=== PATIENT | female | born 1965 | race Caucasian/White ===

== ENCOUNTER → 2017-11-21 | Outpatient (CLI) | payer BC ==
--- NOTE | 2017-11-23 10:47 | MM ---
Reason for exam: screening (asymptomatic). Last mammogram was performed 1 year and 10 months ago. History: Patient is postmenopausal and had first child at age 33. Family history of breast cancer in paternal cousin. Benign excisional biopsy of the right breast, 2003. Physical Findings: A clinical breast exam by your physician is recommended on an annual basis and results should be correlated with mammographic findings. MG 3D Screening Mammo W/Cad Bilateral CC and MLO view(s) were taken. Prior study comparison: January 12, 2016, bilateral MG screening mammo w CAD. November 22, 2012, bilateral digital screening mammo w/CAD. There are scattered fibroglandular densities. A 9 x 5mm circumscribed mass posterior upper outer quadrant left breast is larger. ASSESSMENT: Incomplete: need additional imaging evaluation, BI-RAD 0 RECOMMENDATION: Special view mammogram and ultrasound of the left breast. [facility] will attempt to contact patient to return for supplemental views and ultrasound.
== END | disposition home or self-care (01) ==
LOC: RADMAMWWP 16:47
PROVIDERS: ATTEND Family Medicine
DX: Z12.31 Encounter for screening mammogram for malignant neoplasm of breast (principal)
CPT/HCPCS: 77063; 77067

== ENCOUNTER → 2017-12-01 | Outpatient (CLI) | payer BC ==
--- NOTE | 2017-12-01 08:35 | MM ---
Reason for exam: additional evaluation requested from abnormal screening. Last mammogram was performed less than 1 month ago. History: Patient is postmenopausal and had first child at age 33. Family history of breast cancer in paternal cousin. Benign excisional biopsy of the right breast, 2003. Physical Findings: Nurse did not find any significant physical abnormalities on exam. MG 3D Work Up W/Cad LT LM view(s) were taken of the left breast. Prior study comparison: November 21, 2017, bilateral MG 3d screening mammo w/cad. January 12, 2016, bilateral MG screening mammo w CAD. There are scattered fibroglandular densities. The 2 o'clock 9mm mass persists. Two additional circumscribed nodules are now seen, suspect cysts. These results were verbally communicated with the patient and result sheet given to the patient on 12/01/17. ASSESSMENT: Incomplete: need additional imaging evaluation, BI-RAD 0 RECOMMENDATION: Ultrasound of the left breast. (upper outer quadrant)
--- NOTE | 2017-12-01 08:54 | USB ---
Reason for exam: additional evaluation requested from abnormal screening. History: Patient is postmenopausal and had first child at age 33. Family history of breast cancer in paternal cousin. Benign excisional biopsy of the right breast, 2003. US Breast Workup Limited LT Left limited breast ultrasound including focal area of concern, retroareolar and axilla demonstrates a 0.7 x 0.3 x 0.8cm oval, cystic lesion at 2 o'clock, corresponds well to the original mammographic finding. 6 month follow up mammogram for the finding on the lateral view. These results were verbally communicated with the patient and result sheet given to the patient on 12/01/17. ASSESSMENT: Probably benign, BI-RAD 3 RECOMMENDATION: Follow-up diagnostic mammogram of the left breast in 6 months. Including a lateral view.
== END | disposition home or self-care (01) ==
LOC: RADMAMWWP 07:15
PROVIDERS: ATTEND Family Medicine
DX: R92.8 Other abnormal and inconclusive findings on diagnostic imaging of breast (principal)
CPT/HCPCS: 77061; 77065

== ENCOUNTER → 2018-02-28 | Outpatient (CLI) | payer BC ==
[2018-02-28 10:15] VITALS: BP 114/62; PULSE 84; TEMP 97.7; BMI 26.1
--- NOTE | 2018-02-28 11:36 | P.HPOB ---
History of Present Illness H&P Date: 02/28/18 Chief Complaint: The patient is here for her routine gynecologic exam. This is a 53-year-old G2 PII within LMP of 2007. The patient states that she is noticed a " skin tag "on the left labia. She noticed it about 2 weeks ago. She states it is very small and not painful. She states is the size of a small pimple. She is otherwise without complaints and denies any postmenopausal bleeding. Review of Systems The patient has gained 13 pounds over the last 2 years. She denies respiratory , cardiac, or G.I. problems. She has been treated for palpitations with propranolol and states the palpitations have improved. Past Medical History Past Medical History: Thyroid Disorder (Graves disease.) Additional Past Medical History / Comment(s): seasonal allergies. Palpitations improved with beta gavino. 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 History of Any Multi-Drug Resistant Organisms: None Reported Past Surgical History: Breast Surgery (Right breast biopsy), Section, Tonsillectomy Additional Past Surgical History / Comment(s): Myomectomy done vaginally. Past Psychological History: No Psychological Hx Reported Smoking Status: Never smoker Past Alcohol Use History: None Reported Past Drug Use History: None Reported Additional History: She has been since 1986. She currently does not work outside the home. - Past Family History Father Family Medical History: No Reported History Additional Family Medical History / Comment(s): Grandfather had Parkinson's disease Mother Family Medical History: No Reported History Additional Family Medical History / Comment(s): Grandmother had rheumatoid arthritis. Medications and Allergies Home Medications Medication Instructions Recorded Confirmed Type Methimazole [Tapazole] 2.5 PO DAILY 02/28/18 History Propranolol HCl PO DAILY 02/28/18 History Allergies Allergy/AdvReac Type Severity Reaction Status Date / Time No Known Allergies Allergy Unverified 02/28/18 10:10 Exam Vital Signs Temp Pulse BP 02/28/18 10:11 97.7 F 84 114/62 Intake and Output 02/27/18 02/28/18 02/28/18 22:59 06:59 14:59 Other: Weight 68.946 kg Height 5'4", BMI 26.1. This is a well-developed well-nourished white female who is alert and oriented times 3 in no acute distress. HEENT: Within normal limits. NECK: Supple. There is mild thyroid enlargement. The thyroid is approximate 1.5 times normal size and a soft and nontender. There are no palpable focal nodules.. CHEST AND LUNGS: Clear to auscultation. HEART: Regular rate and rhythm. BREASTS: Are without mass or discharge. AXILLARY EXAM: Negative for adenopathy. BACK: Negative for CVA tenderness. ABDOMEN: Soft, nontender, without palpable masses. PELVIC EXAM: external genitalia reveals mild atrophy. There is a 4 mm left labia majora inclusion cyst which is smooth and benign appearing. The inclusion cyst is nontender. Cervix and vagina appear normal with mild atrophy. There is no unusual discharge. There is no evidence of prolapse. The uterus is midposition, nongravid size and nontender. There are no palpable adnexal masses or tenderness. RECTAL EXAM: there is an external hemorrhoid measuring approximately 1.5 cm which is unchanged from her previous exam. This is not inflamed and nontender. Rectovaginal exam is negative for mass or tenderness and is negative for occult blood. EXTREMITIES: Nontender. IMPRESSION: 1. 53-year-old menopausal female with small 4mm benign appearing left labia inclusion cyst and otherwise unremarkable gynecologic exam. PLAN: 1. Pap smear was performed. 2. Self breast awareness was discussed with the patient. 3. Screening mammogram was done on 11/21/2017. A left breast workup was done on 12/01/2017 and was felt to be benign. A six-month diagnostic left mammogram was recommended. The order slip for this was given to the patient. 4. Osteoporosis prevention was discussed. 5. She will return in one year.
== END ==
LOC: WWCWWP 09:56
PROVIDERS: ATTEND Obstetrics & Gynecology
DX: Z53.9 Procedure and treatment not carried out, unspecified reason (principal)

== ENCOUNTER → 2018-07-03 | Outpatient (CLI) | payer BC ==
--- NOTE | 2018-07-03 15:11 | US ---
EXAMINATION TYPE: US thyroid st tissue head/neck DATE OF EXAM: 07/03/2018 COMPARISON: US thyroid May 31, 2016 CLINICAL HISTORY: Graves Disease E05.00; thyroid nodules GLAND SIZE: Right Lobe: 5.1 x 2.2 x 1.7 cm Overall Parenchyma: heterogenous Left Lobe: 4.6 x 2.3 x 1.2 cm Overall Parenchyma: heterogeneous Isthmus Thickness: 0.2 cm NODULES RIGHT: # of nodules measured on right: 2 1. 0.9 X 0.8 x 0.4 cm hypoechoic mixed nodule at the upper pole with well-defined margins. This no dule is wider than tall and shows intranodular vascularity. Prior size: 0.6 x 0.6 x 0.4 cm 2. 1.5 X 1.2 x 0.7 cm hypoechoic solid consolidation of nodules at the lower pole with well-defined margins. This nodule is wider than tall and shows intranodular vascularity. Prior size: 1.3 x 1.0 x 0.8 cm LEFT: # of nodules measured on left: 1 1. 0.6 X 0.5 x 0.3 cm hypoechoic solid nodule at the lower pole with poorly defined margins. This nodule is wider than tall and shows no intranodular vascularity. Prior size: 0.4 x 0.4 x 0.2 cm ISTHMUS: # of nodules measured in the isthmus: 0 Bilateral neck scanned: no evidence of lymphadenopathy. Heterogeneous normal-sized thyroid with scattered small nodules redemonstrated. No significant interv al change. IMPRESSION: As above, no significant change from prior study.
== END | disposition home or self-care (01) ==
LOC: RADUSWWP 14:21
PROVIDERS: ATTEND Internal Medicine
DX: E04.2 Nontoxic multinodular goiter (principal); E05.00 Thyrotoxicosis with diffuse goiter without thyrotoxic crisis or storm
CPT/HCPCS: 76536

== ENCOUNTER → 2019-07-01 | Outpatient (CLI) | payer BC ==
--- NOTE | 2019-07-02 08:36 | US ---
EXAMINATION TYPE: US thyroid st tissue head/neck DATE OF EXAM: 07/01/2019 COMPARISON: 07/03/2018 and 05/31/2016 CLINICAL HISTORY: E05.00 Graves Disease. GLAND SIZE: Right Lobe: 4.8 x 1.4 x 1.9 cm Overall Parenchyma: homogenous Left Lobe: 4.7 x 1.1 x 2.0 cm Overall Parenchyma: homogeneous Isthmus Thickness: 0.2 cm NODULES RIGHT: # of nodules measured on right: 2 1. 0.9 X 0.6 x 0.7 cm isoechoic solid nodule at the upper pole with poorly defined margins; . This nodule is wider than tall and shows intranodular vascularity. Prior size: 0.9 x 0.4 x 0.8 cm 2. 1.2 X 0.7 x 0.9 cm hypoechoic solid nodule at the lower pole with poorly defined margins; . This nodule is wider than tall and shows intranodular vascularity. Prior size: 1.5 x 0.7 x 1.2 cm LEFT: # of nodules measured on left: 1 1. 0.6 X 0.5 x 0.5 cm isoechoic solid nodule at the lower pole with poorly defined margins; . This nodule is wider than tall and shows intranodular vascularity. Prior size: 0.6 x 0.3 x 0.5 cm ISTHMUS: # of nodules measured in the isthmus: 0 Bilateral neck scanned, no evidence of lymphadenopathy. Technologists notes that nodules are vague and difficult to distinguish from surrounding tissue. IMPRESSION: Bilateral thyroid nodules are similar in size to the prior exam with no interval growth.
== END | disposition home or self-care (01) ==
LOC: RADUSWWP 16:51
PROVIDERS: ATTEND Internal Medicine
DX: E05.20 Thyrotoxicosis with toxic multinodular goiter without thyrotoxic crisis or storm (principal)
CPT/HCPCS: 76536

== ENCOUNTER → 2020-07-13 | Outpatient (CLI) | payer BC ==
--- NOTE | 2020-07-13 12:20 | US ---
EXAMINATION TYPE: US thyroid st tissue head/neck DATE OF EXAM: 07/13/2020 COMPARISON: NONE CLINICAL HISTORY: 55-year-old female E05.00 Graves Disease. Graves disease, follow up thyroid nodules TECHNIQUE: Multiple sonographic images of the thyroid gland are obtained. FINDINGS: GLAND SIZE: Right Lobe: 5.0 x 1.6 x 2.0 cm Overall Parenchyma: homogenous Left Lobe: 4.4 x 1.4 x 1.9 cm Overall Parenchyma: homogeneous Isthmus Thickness: 0.4 cm NODULES RIGHT: # of nodules measured on right: 2 1. 0.9 X 0.6 x 0.8 cm solid, isoechoic nodule, which is wider than tall, with poorly defined margin s, without echogenic foci. Prior size: 0.9 x 0.6 x 0.7 cm 2. 1.4 X 0.7 x 1.2 cm solid, isoechoic nodule, which is wider than tall, with poorly defined margin s, without echogenic foci. Prior size: 1.2 x 0.7 x 0.9 cm LEFT: # of nodules measured on left: 0 ISTHMUS: # of nodules measured in the isthmus: 0 Bilateral neck scanned, no evidence of lymphadenopathy. IMPRESSION: 1. Borderline enlarged thyroid gland. 2. Solid TR3 nodule left lower pole slightly larger 1.4 x 1.2 cm (versus 1.2 x 0.9 cm, previously). G iven slight increase in size, continued follow-up can be performed. 3. The solid 9 mm nodule on the right is unchanged.
== END | disposition home or self-care (01) ==
LOC: RADUSWWP 09:53
PROVIDERS: ATTEND Internal Medicine
DX: E04.2 Nontoxic multinodular goiter (principal)
CPT/HCPCS: 76536

== ENCOUNTER → 2021-07-27 | Outpatient (CLI) | payer BC ==
[2021-07-27 10:47] VITALS: BP 122/74; PULSE 84; RESP 17; TEMP 97.8
--- NOTE | 2021-07-27 11:47 | P.HPOB ---
History of Present Illness H&P Date: 07/27/21 Chief Complaint: The patient is here for her routine gynecologic exam and ma mmogram. This is a 56-year-old with an LMP of 2007. The patient states she recently had 2 episodes of post coital vaginal spotting. She states that on these 2 occasions, she noticed some brownish blood which immediately stopped. She is wondering if it could have been from her . She denies any discomfort with intercourse and did not notice anything unusual during those episodes of sexual intercourse. Her did not seem to have any discomfort or pain with ejaculation. Review of Systems She has lost about 4 pounds over the past 3 years. She denies respiratory, cardiac, or GI problems. Past Medical History Past Medical History: Thyroid Disorder Additional Past Medical History / Comment(s): seasonal allergies. Palpitations improved with beta gavino. 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 History of Any Multi-Drug Resistant Organisms: None Reported Past Surgical History: Breast Surgery, Section, Tonsillectomy Additional Past Surgical History / Comment(s): Myomectomy done vaginally. Past Psychological History: No Psychological Hx Reported Smoking Status: Never smoker Past Alcohol Use History: None Reported Past Drug Use History: None Reported Additional History: She has been since 1986. She delivers groceries. - Past Family History Father Family Medical History: No Reported History Additional Family Medical History / Comment(s): Grandfather had Parkinson's d isease Mother Family Medical History: No Reported History Additional Family Medical History / Comment(s): Grandmother had rheumatoid arthritis. Medications and Allergies Home Medications Medication Instructions Recorded Confirmed Type methIMAzole [Tapazole] 2.5 mg PO DAILY 02/28/18 07/27/21 History Glucosamine/Chondro Golden A [Cosamin 50 mg PO BID 07/27/21 07/27/21 History Ds Tablet] Allergies Allergy/AdvReac Type Severity Reaction Status Date / Time No Known Allergies Allergy Unverified 07/27/21 10:42 Exam Vital Signs Temp Pulse Resp BP Pulse Ox 07/27/21 10:44 97.8 F 84 17 122/74 97 Intake and Output 07/26/21 07/27/21 07/27/21 22:59 06:59 14:59 Other: Weight 67.132 kg Height 5 feet 4 inches, weight 148 pounds, BMI 25.4. This is a well-developed well-nourished white female who is alert and oriented times 3 in no acute distress. HEENT: Within normal limits. NECK: Supple without mass or thyromegaly. CHEST AND LUNGS: Clear to auscultation. HEART: Regular rate and rhythm. BREASTS: Are without mass or discharge. AXILLARY EXAM: Negative for adenopathy. BACK: Negative for CVA tenderness. ABDOMEN: Soft, nontender, without palpable masses. PELVIC EXAM: Normal external genitalia with minimal atrophy. Cervix and vagina appear normal with minimal atrophy. There is no unusual discharge. There is no blood noted in the vagina. There is no evidence of prolapse. The uterus is midposition, nongravid size and nontender. There are no palpable adnexal masses or tenderness. RECTAL EXAM: There is a very visible external hemorrhoid which is nontender and noninflamed. Rectovaginal exam is negative for mass or tenderness and is negative for occult blood. EXTREMITIES: Nontender. IMPRESSION: 1. 56-year-old menopausal female with normal gynecologic exam. 2. 2 episodes of post coital brownish discharge which was probably represented some old blood with no significant physical findings on exam today. Differential diagnosis will include post coital cervical bleeding, endometrial bleeding, or bloody ejaculate from her . PLAN: 1. Pap smear cotest was performed. 2. Self breast awareness was discussed with the patient. We have also discussed symptoms associated with inflammatory breast cancer. 3. Screening mammogram will be done today. 4. I have recommended pelvic ultrasound to rule out endometrial neoplasia as a possible cause for her postcoital spotting. If endometrial thickness is thin, conservative measures will be taken. If thickened endometrium or recurrent vaginal bleeding, consider endometrial biopsy. The order slip for the endometrial biopsy was given to the patient. 5. I have recommended that she and her use condoms to determine if they can see any signs of blood in his ejaculate. 6. She was advised to return in one year for her annual well woman exam and as needed.
--- NOTE | 2021-07-29 11:11 | MM ---
Reason for exam: screening (asymptomatic). Last mammogram was performed 3 years and 8 months ago. History: Patient is postmenopausal and had first child at age 33. Family history of breast cancer in paternal cousin. Benign excisional biopsy of the right breast, 2003. Physical Findings: A clinical breast exam by your physician is recommended on an annual basis and results should be correlated with mammographic findings. MG 3D Screening Mammo W/Cad Bilateral CC and MLO view(s) were taken. Prior study comparison: December 01, 2017, left breast MG 3d work up w/cad LT. November 21, 2017, bilateral MG 3d screening mammo w/cad. No significant changes when compared with prior studies. ASSESSMENT: Benign, BI-RAD 2 RECOMMENDATION: Routine screening mammogram of both breasts in 1 year.
== END ==
LOC: WWCWWP 10:35
PROVIDERS: ATTEND Obstetrics & Gynecology
DX: Z01.419 Encounter for gynecological examination (general) (routine) without abnormal findings (principal); Z12.31 Encounter for screening mammogram for malignant neoplasm of breast; N89.8 Other specified noninflammatory disorders of vagina
CPT/HCPCS: 77063; 77067

== ENCOUNTER → 2021-08-19 | Outpatient (CLI) | payer BC ==
--- NOTE | 2021-08-19 12:13 | US ---
EXAMINATION TYPE: US pelvis complete transvag DATE OF EXAM: 08/19/2021 COMPARISON: NONE CLINICAL HISTORY: N95.0 PMB. One episode of post menopausal vaginal spotting after intercourse; Grave 's Disease; ; C section x 1; post menopause since mid 40s. TECHNIQUE: Transvaginal (TV) and Transabdominal (TA) . Transabdominal sonographic images of the pel vis were acquired. Transvaginal sonographic images were medically necessary to better assess the fol lowing anatomy: endometrium Date of LMP: mid 42 EXAM MEASUREMENTS: Uterus: 6.8 x 3.9 x 2.9 cm Endometrial Stripe: 0.3 cm Right Ovary: 1.2 x 0.7 x 1.0 cm Left Ovary: 1.2 x 1.7 x 0.7 cm 1. Uterus: Retroverted on TV US; Small Nabothian Cyst cluster seen in cervix = .2 x 0.4 x 0.2cm ; My ometrial solid oval mass in upper uterus = 2.3 x 1.9 x 2.1cm suggests leiomyoma. 2. Endometrium: thickness is wnl for post menopause status; mid peripheral endometrial cyst seen = 0 .3 x 0.3 x 0.2cm 3. Right Ovary: peripheral hyperechoic calcifications are noted 4. Left Ovary: wnl 5. Bilateral Adnexa: wnl 6. Posterior cul-de-sac: wnl IMPRESSION: 1. Leiomyomatous change of the uterus. 2. Cervical nabothian cysts. 3. Endometrial cysts noted.
== END | disposition home or self-care (01) ==
LOC: RADUSWWP 09:40
PROVIDERS: ATTEND Obstetrics & Gynecology
DX: D25.9 Leiomyoma of uterus, unspecified (principal); N88.8 Other specified noninflammatory disorders of cervix uteri
CPT/HCPCS: 76830; 76856

== ENCOUNTER → 2022-01-17 | Outpatient (CLI) | payer BC ==
--- NOTE | 2022-01-17 16:17 | US ---
EXAMINATION TYPE: US thyroid st tissue head/neck DATE OF EXAM: 01/17/2022 COMPARISON: Thyroid ultrasound 07/13/2020. CLINICAL HISTORY: E04.9 NONTOXIC GOITER. Follow up nodules GLAND SIZE: Right Lobe: 5.1 x 1.6 x 2.0 cm Overall Parenchyma: homogenous Left Lobe: 5.1 x 1.3 x 2.1 cm Overall Parenchyma: homogeneous Isthmus Thickness: 0.3 cm NODULES RIGHT: # of nodules measured on right: 2 1. 1.1 X 0.6 x 0.9 cm, upper , mixed cystic and solid, isoechoic nodule, which is wider than tall, with smooth margins, without echogenic foci. Prior size: 0.9 x 0.6 x 0.8 cm 2. 1.5 X 0.8 x 1.6 cm, lower , solid or almost completely solid, isoechoic nodule, which is wider t wilder tall, with ill-defined margins, without echogenic foci. Prior size: 1.4 x 0.7 x 1.2 cm LEFT: # of nodules measured on left: 1 1. 0.8 X 0.7 x 0.6 cm, , solid or almost completely solid, isoechoic nodule, which is wider than ta ll, with smooth margins, without echogenic foci. Prior size: not visualized prior ISTHMUS: # of nodules measured in the isthmus: 0 Bilateral neck scanned, no evidence of lymphadenopathy. IMPRESSION: * Marginal increase in size of right lower lobe thyroid nodule measuring up to 1.5 cm. This is consi stent with a TR3 nodule. Follow-up ultrasound in one year is recommended. * Marginal increase in size of right upper lobe 1.1 cm thyroid nodule. This is consistent with a TR2 nodule. No follow-up recommended. * 0.8 cm left thyroid lobe TR3 nodule. No follow-up is recommended based on size.
== END | disposition home or self-care (01) ==
LOC: RADUSWWP 15:40
PROVIDERS: ATTEND Internal Medicine
DX: E04.2 Nontoxic multinodular goiter (principal)
CPT/HCPCS: 76536

== ENCOUNTER → 2022-10-03 | Outpatient (CLI) | payer BC ==
--- NOTE | 2022-10-04 18:55 | MM ---
Reason for Exam: Screening (asymptomatic). Last mammogram was performed 1 year(s) and 3 month(s) ago. Patient History: Menarche at age 14. First Full-Term at age 33. Late child-bearing (after 30). Postmenopausal. Patient has history of breast feeding. 2004, Benign Excisional Biopsy on the right side. Paternal cousin had breast cancer. Risk Values: Bailee 5 year model risk: 1.9%. NCI Lifetime model risk: 13.1%. Prior Study Comparison: 01/12/2016 Bilateral Screening Mammogram, [facility]. 11/21/2017 Bilateral Screening Mammogram, [facility]. 12/01/2017 Left Diagnostic Mammogram, [facility]. 07/27/2021 Bilateral Screening Mammogram, [facility]. Tissue Density: There are scattered fibroglandular densities. Findings: Analyzed By CAD. Enlarging 6 mm circumscribed isodense nodule approximately 3-4 o'clock central left breast. Further ultrasound evaluation is recommended. Otherwise, there is no suspicious group of microcalcifications or new suspicious mass in either breast. Overall Assessment: Incomplete: need additional imaging evaluation, BI-RAD 0 Management: Diagnostic Breast Ultrasound of the left breast. Targeted to the 3 to 4:00 position for possible enlarging 6 mm cyst. Electronically signed and approved by: Stella Lott M.D. Radiologist
== END | disposition home or self-care (01) ==
LOC: RADMAMWWP 11:19
PROVIDERS: ATTEND Family Medicine
DX: Z12.31 Encounter for screening mammogram for malignant neoplasm of breast (principal); Z78.0 Asymptomatic menopausal state; Z80.3 Family history of malignant neoplasm of breast
CPT/HCPCS: 77063; 77067

== ENCOUNTER → 2023-05-02 | Outpatient (CLI) | payer BC ==
--- NOTE | 2023-05-02 18:21 | US ---
EXAMINATION TYPE: US thyroid st tissue head/neck DATE OF EXAM: 05/02/2023 COMPARISON: US 01/17/2022 CLINICAL INDICATION: Female, 58 years old with history of E04.9 Graves Disease; Patient is on thyroid medication. Patient is on Grave's Disease. Hx of FNA. GLAND SIZE: Right Lobe: 5.8 x 3.1 x 1.7 cm Overall Parenchyma: heterogenous Left Lobe: 5.5 x 2.3 x 1.4 cm Overall Parenchyma: heterogenous Isthmus Thickness: 0.26 cm NODULES RIGHT: # of nodules measured on right: 2 1. 1.1 X 1.0 x 0.7 cm, upper lateral, Prior size: 1.1 x 0.6 x 0.8 cm TIRADS Score: 3 TIRADS Category 3: Composition: Solid or almost completely solid (2 points). Echogenicity: Hyperechoic or isoechoic (1 point). Shape: Wider than tall (0 points). Margin: Smooth (0 points). Echogenic foci: None or large comet-tail artifacts (0 points) Recommendation: If >2.5cm: FNA; If >1.5cm: Follow up at 1,3,5 years 2. 1.3 X 1.5 x 0.8 cm, lower mid, Prior size: 1.5 x 0.8 x 1.6 cm TIRADS Score: 3 TIRADS Category 3: M Composition: Solid or almost completely solid (2 points). Echogenicity: Hyperechoic or isoechoic (1 point). Shape: Wider than tall (0 points). Margin: Smooth (0 points). Echogenic foci: None or large comet-tail artifacts (0 points) Recommendation: If >2.5cm: FNA; If >1.5cm: Follow up at 1,3,5 years LEFT: # of nodules measured on left: 0 ISTHMUS: # of nodules measured in the isthmus: 0 Bilateral neck scanned, no evidence of lymphadenopathy. IMPRESSION: No suspicious thyroid nodules. Recommendations as described above.
== END | disposition home or self-care (01) ==
LOC: RADUSWWP 16:16
PROVIDERS: ATTEND Internal Medicine
DX: E04.9 Nontoxic goiter, unspecified (principal); E05.00 Thyrotoxicosis with diffuse goiter without thyrotoxic crisis or storm
CPT/HCPCS: 76536

== ENCOUNTER → 2023-05-09 | Outpatient (CLI) | payer BC ==
--- NOTE | 2023-05-09 10:29 | MM ---
Reason for Exam: Follow-up at short interval from prior study. Last screening mammogram was performed 7 month(s) ago. Patient History: Menarche at age 14. First Full-Term at age 33. Late child-bearing (after 30). Postmenopausal. Patient has history of breast feeding. 2004, Benign Excisional Biopsy on the right side. Paternal cousin had breast cancer. Risk Values: Bailee 5 year model risk: 2.0%. NCI Lifetime model risk: 12.8%. Prior Study Comparison: 12/01/2017 Left Diagnostic Mammogram, [facility]. 07/27/2021 Bilateral Screening Mammogram, [facility]. 10/03/2022 Bilateral MG 3D screening mammo w/cad, [facility]. Tissue Density: Left: There are scattered fibroglandular densities. Findings: Analyzed By CAD. 7 mm isodense nodule approximately 3:00 position left breast middle depth measuring 6 mm, previously, likely corresponding to a cyst seen on ultrasound. An additional short interval follow-up is recommended. Otherwise, no significant change. Overall Assessment: Probably benign, BI-RAD 3 Management: Diagnostic Mammogram of both breasts in 6 months. Total one-year follow-up left breast and annual exam of the right breast. Results were given to the patient verbally at the time of exam. Patient should continue monthly self-breast exams. A clinical breast exam by your physician is recommended on an annual basis. This exam should not preclude additional follow-up of suspicious palpable abnormalities. Note on Bailee scores and lifetime risk: 1. A Bailee score greater than 3% is considered moderate risk. If this is the case, consider specialist referral to assess eligibility for a risk reducing agent. 2. If overall lifetime risk for the development of breast cancer is 20% or higher, the patient may qualify for future screening with alternating mammogram and breast MRI. Electronically signed and approved by: Stella Lott M.D. Radiologist
== END | disposition home or self-care (01) ==
LOC: RADMAMWWP 09:39
PROVIDERS: ATTEND Family Medicine
DX: R92.322 Mammographic fibroglandular density, left breast (principal); Z78.0 Asymptomatic menopausal state; Z80.3 Family history of malignant neoplasm of breast
CPT/HCPCS: 77061; 77065

== ENCOUNTER 2023-07-16 18:08 | Emergency (ER) | payer BC ==
--- NOTE | 2023-07-16 18:23 | ED ---
ENT HPI - General Chief complaint: ENT Stated complaint: Throat issues/ vomitting Time Seen by Provider: 07/16/23 18:15 Source: patient Mode of arrival: ambulatory Limitations: no limitations - History of Present Illness Initial comments: 58-year-old female presenting with chief complaint of food bolus stuck in the throat. Patient was eating roast beef at around 2:00 this afternoon when she felt a piece stuck in her esophagus. She has attempted to dislodge it by using carbonated beverages at home but has been unable to do so. She states that she is occasionally vomiting with saliva gathers in the throat. She is having no difficulty breathing and is able to talk in full sentences. She states that she has had food stuck in the throat before, has never had an EGD. She is normally able to dislodge it on her own. - Related Data Home Medications Medication Instructions Recorded Confirmed methIMAzole [Tapazole] 2.5 mg PO MOTUWETH 02/28/18 07/16/23 Ascorbic Acid [Vitamin C] 1,000 mg PO DAILY 07/16/23 07/16/23 Montelukast [Singulair] 10 mg PO DAILY 07/16/23 07/16/23 Allergies Allergy/AdvReac Type Severity Reaction Status Date / Time No Known Allergies Allergy Unverified 07/27/21 10:42 Review of Systems ROS Statement: Those systems with pertinent positive or pertinent negative responses have been documented in the HPI. ROS Other: All systems not noted in ROS Statement are negative. Past Medical History Past Medical History: Thyroid Disorder Additional Past Medical History / Comment(s): seasonal allergies. Palpitations improved with beta gavino. 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 graves disease History of Any Multi-Drug Resistant Organisms: None Reported Past Surgical History: Breast Surgery, Section, Tonsillectomy Additional Past Surgical History / Comment(s): Myomectomy done vaginally. Past Psychological History: No Psychological Hx Reported Smoking Status: Never smoker Past Alcohol Use History: None Reported Past Drug Use History: None Reported - Past Family History Father Family Medical History: No Reported History Additional Family Medical History / Comment(s): Grandfather had Parkinson's disease Mother Family Medical History: No Reported History Additional Family Medical History / Comment(s): Grandmother had rheumatoid arthritis. General Exam Limitations: no limitations General appearance: alert, in no apparent distress Head exam: Present: atraumatic, normocephalic Eye exam: Present: normal appearance Neck exam: Present: normal inspection Respiratory exam: Absent: respiratory distress Cardiovascular Exam: Present: regular rate Neurological exam: Present: alert, oriented X3 Psychiatric exam: Present: normal affect, normal mood Skin exam: Present: warm, dry Course Vital Signs 07/16/23 07/16/23 18:11 20:08 Temperature 98.2 F Pulse Rate 88 89 Respiratory 16 16 Rate Blood Pressure 132/83 129/83 O2 Sat by Pulse 98 98 Oximetry Medical Decision Making - Medical Decision Making Was pt. sent in by a medical professional or institution (, [facility], [employer], urgent care, hospital, or snf...) When possible be specific @ -No Did you speak to anyone other than the patient for history (EMS, parent, family, police, friend...)? What history was obtained from this source @ -No Did you review nursing and triage notes (agree or disagree)? Why? @ -I reviewed and agree with nursing and triage notes Were old charts reviewed (outside hosp., previous admission, EMS record, old E KG, old radiological studies, urgent care reports/EKG's, snf records)? Report findings @ -No old charts were reviewed Differential Diagnosis (chest pain, altered mental status, abdominal pain women, abdominal pain men, vaginal bleeding, weakness, fever, dyspnea, syncope, headache, dizziness, GI bleed, back pain, seizure, CVA, palpatations, mental health, musculoskeletal)? @ -Differential includes foreign body, foreign body sensation, this is not an all-inclusive list EKG interpreted by me (3pts min.). @ -As above X-rays interpreted by me (1pt min.). @ -None done CT interpreted by me (1pt min.). @ -None done U/S interpreted by me (1pt. min.). @ -None done What testing was considered but not performed or refused? (CT, X-rays, U/S, labs)? Why? @ -None What meds were considered but not given or refused? Why? @ -None Did you discuss the management of the patient with other professionals (professionals i.e. , [facility], [employer], lab, RT, psych nurse, secondary social studies teacher, mohel, teacher, protocol officer, adult protective caseworker)? Give summary @ -No Was smoking cessation discussed for >3mins.? @ -No Was critical care preformed (if so, how long)? @ -No Were there social determinants of health that impacted care today? How? (Homelessness, low income, unemployed, alcoholism, drug addiction, transportation, low edu. Level, literacy, decrease access to med. care, long term, rehab)? @ -No Was there de-escalation of care discussed even if they declined (Discuss DNR or withdrawal of care, Hospice)? DNR status @ -No What co-morbidities impacted this encounter? (DM, HTN, Smoking, COPD, CAD, Cancer, CVA, ARF, Chemo, Hep., AIDS, mental health diagnosis, sleep apnea, morbid obesity)? @ -None Was patient admitted / discharged? Hospital course, mention meds given and route, prescriptions, significant lab abnormalities, going to OR and other pertinent info. @ -58-year-old female presenting with chief complaint of a piece of meat stuck in her throat. This started this afternoon, the patient tried drinking carbonated beverages at home but could not dislodge it. She was given glucagon and Valium, as well as rosa wisam to assist with dislodging the foreign body. Patient continued to have foreign body sensation. There were plans to admit the patient with GI to see the patient in the morning, however later on during her course the patient did not feel the foreign body anymore and was able to hold down fluids. Discharged home. Follow-up with PCP. Report back to ER with any new or worsening symptoms. Discussed return parameters and answered all questions. Patient conveyed verbal understanding and agreed to the plan. I discussed this case in detail with my attending Dr. Grier Undiagnosed new problem with uncertain prognosis? @ -No Drug Therapy requiring intensive monitoring for toxicity (Heparin, Nitro, Insulin, Cardizem)? @ -No Were any procedures done? @ -No Diagnosis/symptom? @ -Esophageal foreign body Acute, or Chronic, or Acute on Chronic? @ -Acute Uncomplicated (without systemic symptoms) or Complicated (systemic symptoms)? @ -Uncomplicated Side effects of treatment? @ -No Exacerbation, Progression, or Severe Exacerbation? @ -No Poses a threat to life or bodily function? How? (Chest pain, [place], [place], pneumonia, PE, COPD, DKA, ARF, appy, cholecystitis, CVA, Diverticulitis, Homicidal, Suicidal, threat to staff... and all critical care pts) @ -No Disposition Clinical Impression: Esophageal foreign body Disposition: HOME SELF-CARE Condition: Good Instructions (If sedation given, give patient instructions): Food Impaction (ED) Is patient prescribed a controlled substance at d/c from ED?: No Referrals: Christiano Montenegro MD [Primary Care Provider] - 1-2 days Time of Disposition: 21:50
[2023-07-16 18:36] VITALS: RESP 16; TEMP 98.2
[2023-07-16] MEDS: SODIUM CHLORIDE 0.9% 500 ML 500 ML IV ONE (18:57)
[2023-07-16] MEDS: NITROGLYCERIN SL TABS 0.4 MG TAB SUBLINGUAL STA (18:57)
[2023-07-16] MEDS: GLUCAGON 1 MG/ML VIAL IVP STA (18:59)
[2023-07-16 20:23] VITALS: BP 129/83; PULSE 89
[2023-07-16] MEDS ORDERED: NALOXONE 0.4 MG/ML 1 ML VIAL IV PRN (20:44)
[2023-07-16] MEDS: SODIUM CHLORIDE 0.9% 1,000 ML IV SCH (21:43)
== END 2023-07-16 22:22 | disposition home or self-care (01) ==
LOC: EC 18:08 → 6NMEDSUR 20:24 → UNDOADMOB 20:24 → 6NMEDSUR 21:16 → EC 22:22
DX: T18.128A Food in esophagus causing other injury, initial encounter (principal); W44.F3XA Food entering into or through a natural orifice, initial encounter
CPT/HCPCS: 99283; 96374; 96375; 96361; J1610; J3360